=== PATIENT | female | born 1995 | race Caucasian/White ===

== ENCOUNTER 2021-05-07 13:30 | Outpatient (RCR) | payer OTHER, BC ==
[~2021-05-07 13:30] MED LIST: APRI 0.15 MG-0.1 TAB PO; FLEXERIL5 MG PO; NO HOME MEDICATIONS; NORCO 325 MG-51 TAB PO; ROBAXIN 75750 MG/TAB PO
== END 2021-05-10 ==
LOC: WSPT
DX: M54.50 Low back pain, unspecified (principal)
CPT/HCPCS: G0283-GP

== ENCOUNTER 2021-06-06 08:45 | Outpatient (RCR) | payer BC | END 2021-06-09 | disposition home or self-care (01) | LOC: WSPT | DX: M54.50 Low back pain, unspecified (principal); G89.29 Other chronic pain | CPT/HCPCS: G0283-GP ==

== ENCOUNTER 2021-06-20 09:45 | Outpatient (RCR) | payer OTHER | END 2021-07-10 | disposition home or self-care (01) | LOC: WSPT | DX: M54.50 Low back pain, unspecified (principal) ==